=== PATIENT | female | born 1970 | race Caucasian/White ===

== ENCOUNTER 2022-07-04 06:00 | Day surgery (SDC) | payer MEDICAID ==
[~2022-07-04] VITALS: Ht 165.1 cm; Wt 77.1 kg
[2022-07-04 06:58] LABS: HCG,QUAL RESULT NEGATIVE (NEGATIVE)
[2022-07-04] MEDS: MIDAZOLAM HCL 5 MG/5 ML VIAL ONE ×4 (07:39→07:57)
[2022-07-04] MEDS ORDERED: SIMETHICONE 40 MG/0.6 ML ML ONE (07:55)
[2022-07-04] MEDS ORDERED: MEPERIDINE 100 MG INJ. 100 MG/ML VIAL ONE (07:55)
[2022-07-04 11:51] VITALS: BP_SYST 114
== END 2022-07-04 10:05 | disposition home or self-care (01) ==
LOC: SMU 06:00 → SDS 06:00
PROVIDERS: ATTEND Internal Medicine Gastroenterology
DX: R19.5 Other fecal abnormalities (principal); K31.7 Polyp of stomach and duodenum; K64.8 Other hemorrhoids; K29.50 Unspecified chronic gastritis without bleeding; B96.81 Helicobacter pylori [H. pylori] as the cause of diseases classified elsewhere; J45.909 Unspecified asthma, uncomplicated; E78.5 Hyperlipidemia, unspecified; F17.210 Nicotine dependence, cigarettes, uncomplicated; Z90.49 Acquired absence of other specified parts of digestive tract; Z79.899 Other long term (current) drug therapy; Z20.822 Contact with and (suspected) exposure to COVID-19
CPT/HCPCS: 43239; 45378; 87426; 87081; 84703; 36415; 88305; 88312; 88313; 99152; 99153; G0378; J2250; J2175